=== PATIENT | female | born 1955 | race Caucasian/White ===

== ENCOUNTER 2016-06-07 16:04 | Emergency (ER) | payer MEDICARE ==
--- NOTE | 2016-06-07 17:27 | RAD ---
Name: ANDRES HATHAWAY Exam: Left knee Comparison: None Clinical history: Prior joint replacement. Tripped and fall. Left knee pain. Initial encounter. Findings: 4 radiographs of left knee are submitted. Bone density is within normal limits. There is been prior total left knee arthroplasty. Joint spaces are maintained. There is no fracture, dislocation or periosteal reaction. Loosening of the femoral prosthesis is not excluded on this exam. The clear space between the distal femur and the anterior aspect of the prosthesis is a larger than normally seen. Correlate with prior imaging. There is no joint effusion. Extensive venous vascular calcification is noted within the lower leg. The tibial tubercle is mildly irregular which is chronic. Impression: 1. No acute bony abnormality. 2. Prior left knee arthroplasty. Joint spaces are maintained. Please see above. 3. Extensive venous vascular calcification within the lower leg
[2016-06-07] MEDS ORDERED: IBUPROFEN 600 MG TABLET ONE (18:00)
[2016-06-07] MEDS ORDERED: ACETAMINOPHEN 325 MG TABLET ONE (18:00)
== END 2016-06-07 18:17 | disposition home or self-care (01) ==
LOC: ED 16:04
DX: M25.562 Pain in left knee (principal); W18.43XA Slipping, tripping and stumbling without falling due to stepping from one level to another, initial encounter; Y92.009 Unspecified place in unspecified non-institutional (private) residence as the place of occurrence of the external cause
CPT/HCPCS: 73564; 99283 ×2; A9270 ×2